=== PATIENT | female | born 1950 | race Caucasian/White ===

== ENCOUNTER 2022-03-01 10:45 | Emergency (ER) | payer MEDICARE, BC ==
[~2022-03-01] VITALS: Ht 162.6 cm; Wt 98.9 kg
[~2022-03-01 10:45] MED LIST: CHOLESTYRAMINE4 G1 PO; EC-NAPROSYN500 MG PO; FLUTICASONE50 MCG; HYDROCHLORO25 MG/TAB PO; LOSARTAN POT100 MG PO; METOPROL TAR100 MG PO; NEXIUM40 M1 PO; TRAMADOL HYDROC50 MG PO; ZANTAC150 M1 PO; ZOCOR20 M1 PO
[2022-03-01 10:56] VITALS: BP 186/78
[2022-03-01 11:07] LABS: HEMATOCRIT 40.3 % (37.0-47.0); HEMOGLOBIN 13.2 g/dl (12.0-16.0); IMMATURE GRANULOCYTES 0.4 % (0.0-5.0); MEAN CELL VOLUME 97.8 fL CALC (80.0-100.0); MEAN CORPUSCULAR HGB CONC 32.8 g/dL CAL (32.0-36.0); RED BLOOD COUNT 4.12 mill/uL (4.20-5.60); RED CELL DISTRI WIDTH 14.8 % (11.5-15.5)
[2022-03-01] MEDS ORDERED: FUROSEMIDE20 MG PO (11:33)
[2022-03-01] MEDS ORDERED: CARVEDILOL25 MG PO (11:36)
[2022-03-01] MEDS ORDERED: PEPCID20 MG PO (11:37)
[2022-03-01] MEDS ORDERED: POTASSIUM CHLO10 MEQ PO (11:38)
[2022-03-01] MEDS ORDERED: BIOTIN5000 MC2 PO (11:39)
[2022-03-01] MEDS ORDERED: FISH OIL1000 M2 PO (11:39)
[2022-03-01] MEDS ORDERED: CALNA PO (11:40)
[2022-03-01] MEDS ORDERED: VITAMIN D5000 UNIT PO (11:41)
[2022-03-01] MEDS ORDERED: CALCIUM600 M1 PO (11:42)
[2022-03-01 11:44] LABS: ALBUMIN 4.6 g/dL (3.2-5.0); ALKALINE PHOSPHATASE 72 u/l (38-126); ANION GAP 11 (6-22 (CALC)); BILIRUBIN, TOTAL 0.8 mg/dL (0.0-1.4); BUN 22 mg/dL (8-23); BUN/CREATININE RATIO 22 (12-20 (CALC)); CARBON DIOXIDE 28 mmol/l (22-30); CHLORIDE 100 mmol/l (95-108); GFR FOR AFR.AMER. > 60 ML/MIN (>=60 (CALC)); GFR OTHER RACES 54 ML/MIN (>=60 (CALC)); POTASSIUM 3.8 mmol/l (3.5-5.1); SGOT/AST 39 u/l (9-36); SODIUM 135 mmol/l (137-146); TOTAL PROTEIN 7.8 g/dL (6.3-8.2)
[2022-03-01] MEDS ORDERED: HUMIRA PEN40 MG/0.4 IJ (11:44)
[2022-03-01 12:42] VITALS: BP 142/61
[2022-03-01 13:00] LABS: URINE BILIRUBIN - DIPSTICK NEGATIVE (NEGATIVE); URINE BLOOD DIPSTICK NEGATIVE (NEGATIVE); URINE COLOR YELLOW; URINE GLUCOSE - DIPSTICK NEGATIVE (NEGATIVE); URINE KETONE NEGATIVE (NEGATIVE); URINE PROTEIN - DIPSTICK NEGATIVE (NEG-TRACE); URINE UROBILINOGEN - DIPSTICK 0.2 E.U./dL (0.2)
[2022-03-01 13:21] LABS: URINE LEUK ESTERASE SMALL (NEGATIVE); URINE NITRITE - DIPSTICK NEGATIVE (Negative)
[2022-03-01 13:27] LABS: URINE EPITHELIAL CELLS FEW EPI/hpf (0-FEW)
[2022-03-01 13:32] LABS: URINE WBC 0-2 WBC/hpf (0-5)
[2022-03-01 13:42] LABS: URINE BACTERIA FEW hpf
[2022-03-01] MEDS ORDERED: ZOFRAN4 MG/TAB PO (16:07)
[2022-03-01 16:11] VITALS: BP 142/61
== END 2022-03-01 16:22 | disposition home or self-care (01) ==
LOC: ED 10:45
PROVIDERS: Internal Medicine
DX: R07.9 Chest pain, unspecified (principal); E86.0 Dehydration; R11.10 Vomiting, unspecified

== ENCOUNTER 2024-03-27 12:14 | Emergency (ER) | payer MEDICARE, BC ==
[~2024-03-27] VITALS: Ht 162.6 cm; Wt 77.2 kg
[2024-03-27] VITALS (26 sets, daily range): BP systolic 166–211; BP diastolic 48–86
[~2024-03-27 12:14] MED LIST changes: +BIOTIN5000 MC2 PO; +CALCIUM600 M1 PO; +CALNA PO; +CARVEDILOL25 MG PO; +FISH OIL1000 M2 PO; +FUROSEMIDE20 MG PO; +HUMIRA PEN40 MG/0.4 IJ; +PEPCID20 MG PO; +POTASSIUM CHLO10 MEQ PO; +VITAMIN D5000 UNIT PO; +ZOFRAN4 MG/TAB PO
[2024-03-27] MEDS ORDERED: Iopamidol 370 (Isovue) 76% 100 ML SDV IV ONE ×2 (12:20)
[2024-03-27] MEDS ORDERED: PROGESTERONE100 MG PO (12:34)
[2024-03-27] MEDS ORDERED: ESTRACE1 MG PO (12:35)
[2024-03-27 12:38] LABS: BASO% 0.6 % (0-3); EOS% 0.9 % (0-8); HEMATOCRIT 37.4 % (37.0-47.0); HEMOGLOBIN 12.1 g/dl (12.0-16.0); IMMATURE GRANULOCYTES 0.2 % (0.0-5.0); LYMPH% 50.9 % (15-41); MEAN CELL VOLUME 100.8 fL CALC (80.0-100.0); MEAN CORPUSCULAR HGB 32.6 pG CALC (26.0-32.0); MEAN CORPUSCULAR HGB CONC 32.4 g/dL CAL (32.0-36.0); MONO% 10.1 % (2-13); NEUT# 3.16 thou/uL (2.00-7.15); NEUT% 37.3 % (42-76); RED BLOOD COUNT 3.71 mill/uL (4.20-5.60)
[2024-03-27 12:53] LABS: ALKALINE PHOSPHATASE 52 u/l (38-126); BILIRUBIN, TOTAL 0.8 mg/dL (0.02-1.3); BUN 16 mg/dL (8-23); BUN/CREATININE RATIO 23 (12-20 (CALC)); CALCULATED LDLCHOLESTEROL 69 mg/dL (62-129 (CALC)); CHLORIDE 102 mmol/l (95-108); CHOLESTEROL HDL RATIO 2.4 (<4.4 (CALC)); CREATININE 0.7 mg/dL (0.5-1.0); ESTIMATED GFR 90 ML/MIN (>=90 (CALC)); HDL CHOLESTEROL 68 mg/dL (39.0-59.0); POTASSIUM 4.2 mmol/l (3.5-5.1); SGOT/AST 31 u/l (9-36); SODIUM 132 mmol/l (137-146); TOTAL CHOLESTEROL 160 mg/dl (0-199); TOTAL PROTEIN 6.9 g/dL (6.3-8.2); TOTAL TRIGLYCERIDES 113 mg/dl (0-149); VLDL CHOLESTROL 23 mg/dl (0-48 (CALC))
[2024-03-27 13:01] LABS: ANION GAP 13 (6-22 (CALC)); CARBON DIOXIDE 21 mmol/l (22-30); PROTHROMBIN TIME 11.2 SECONDS (9.0-12.5)
[2024-03-27 15:04] LABS: URINE BILIRUBIN - DIPSTICK Negative (NEGATIVE); URINE BLOOD DIPSTICK Negative (NEGATIVE); URINE GLUCOSE - DIPSTICK Negative (NEGATIVE); URINE KETONE Negative (NEGATIVE); URINE LEUK ESTERASE Negative (NEGATIVE); URINE NITRITE - DIPSTICK Negative (Negative); URINE PROTEIN - DIPSTICK Negative (NEG-TRACE); URINE SPECIFIC GRAVITY 1.015; URINE UROBILINOGEN - DIPSTICK 0.2 E.U./dL (0.2)
[2024-03-27 15:05] LABS: URINE COLOR Yellow
[2024-03-27] MEDS ORDERED: ASPIRIN 81 MG/TAB PO ONE (16:50)
[2024-03-27] MEDS ORDERED: ATORVASTATIN CALCIUM 40 MG/TAB PO ONE (16:50)
[2024-03-27] MEDS ORDERED: CLOPIDOGREL BISULFATE 75 MG/TAB TAB PO ONE (17:25)
== END 2024-03-27 19:31 | disposition short-term general hospital (02) ==
LOC: ED 12:14
PROVIDERS: Nurse Practitioner
DX: G45.9 Transient cerebral ischemic attack, unspecified (principal); I65.22 Occlusion and stenosis of left carotid artery; I10 Essential (primary) hypertension
CPT/HCPCS: Q9967